=== PATIENT | male | born 1970 | race Caucasian/White ===

== ENCOUNTER 2022-09-17 15:00 | Emergency (ER) | payer BC ==
[~2022-09-17] VITALS: Ht 167.6 cm; Wt 71.8 kg
[2022-09-17 15:05] VITALS: BP 152/96; PULSE 90; RESP 18; TEMP 98.4; O2SAT 98
[2022-09-17] MEDS ORDERED: LIDOcaine 1% 30ml preserv. free vial IJ ONE (15:45)
[2022-09-17] MEDS ORDERED: IBUP-1986 PO (16:16)
== END 2022-09-17 16:38 | disposition home or self-care (01) ==
LOC: ER 15:02
DX: S63.251A Unspecified dislocation of left index finger, initial encounter (principal); X58.XXXA Exposure to other specified factors, initial encounter; Y93.89 Activity, other specified; Y92.89 Other specified places as the place of occurrence of the external cause; Y99.8 Other external cause status
CPT/HCPCS: 26010; 26770; 73140; 99283; 99284